=== PATIENT | male | born 1980 | race Caucasian/White ===

== ENCOUNTER 2019-01-25 09:29 | Emergency (ER) | payer MEDICAID ==
[~2019-01-25] VITALS: Ht 165.1 cm; Wt 85.9 kg
[2019-01-25 09:50] VITALS: Ht 165.1 cm; Wt 85.9 kg
[2019-01-25 10:59] LABS: UA SPECIFIC GRAVITY >=1.030 (1.005-1.035); microscopic required? YES; urine erythrocyte 2+ (NEGATIVE)
[2019-01-25 11:47] VITALS: BP 127/84
== END 2019-01-25 11:47 | disposition home or self-care (01) ==
LOC: ED 09:29
PROVIDERS: Emergency Medicine
DX: R31.29 Other microscopic hematuria (principal); R30.9 Painful micturition, unspecified; I10 Essential (primary) hypertension
CPT/HCPCS: 87491; 87591

== ENCOUNTER 2019-04-05 14:22 | Emergency (ER) | payer MEDICAID ==
[~2019-04-05] VITALS: Ht 152.4 cm; Wt 79.8 kg
[2019-04-05 14:37] VITALS: Ht 152.4 cm; Wt 79.8 kg
[2019-04-05 17:18] VITALS: BP 121/89
== END 2019-04-05 17:18 | disposition home or self-care (01) ==
LOC: ED 14:22
DX: K52.9 Noninfective gastroenteritis and colitis, unspecified (principal); I10 Essential (primary) hypertension
CPT/HCPCS: Q0162

== ENCOUNTER 2019-04-07 13:01 | Emergency (ER) | payer MEDICAID ==
[~2019-04-07] VITALS: Ht 165.1 cm; Wt 80.3 kg
[2019-04-07 13:12] VITALS: Ht 165.1 cm; Wt 80.3 kg
[2019-04-07 15:03] LABS: BASOPHIL % 0.4 % (0-2); PLATELET COUNT 261 x10^3mcL (130-400); RED CELL DISTRIBUTION WIDTH 12.8 % (11.5-14.5)
[2019-04-07 15:14] LABS: CALCIUM 8.9 mg/dL (8.5-10.1); CARBON DIOXIDE 26.2 mmol/L (21-32); CHLORIDE SERUM 104 mmol/L (98-107); CREATININE SERUM 1.1 mg/dL (0.7-1.3); GFR1 > 60 mL/min; GLUCOSE SERUM 99 mg/dL (74-106); POTASSIUM SERUM 3.8 mmol/L (3.5-5.1); SODIUM SERUM 140 mmol/L (136-145)
[2019-04-07 15:19] LABS: ALBUMIN 3.8 g/dL (3.4-5.0); ALKALINE PHOSPHATASE 129 U/L (46-116); ALT/SGPT 85 U/L (16-63); AST/SGOT 43 U/L (15-37); BILIRUBIN TOTAL 0.5 mg/dL (0.20-1.00); LIPASE 309 IU/L (73-393); TOTAL PROTEIN, SERUM 7.7 g/dL (6.4-8.2)
[2019-04-07 17:05] VITALS: BP 117/87
== END 2019-04-07 17:05 | disposition home or self-care (01) ==
LOC: ED 13:01
PROVIDERS: Emergency Medicine
DX: A08.4 Viral intestinal infection, unspecified (principal); I10 Essential (primary) hypertension
CPT/HCPCS: J2405; J7030

== ENCOUNTER 2019-07-17 10:22 | Emergency (ER) | payer MEDICAID ==
[~2019-07-17] VITALS: Ht 160 cm; Wt 79.8 kg
[2019-07-17 10:25] VITALS: Ht 160 cm; Wt 79.8 kg
[2019-07-17 12:31] VITALS: BP 140/86
== END 2019-07-17 12:31 | disposition home or self-care (01) ==
LOC: ED 10:22
DX: S89.92XA Unspecified injury of left lower leg, initial encounter (principal); I10 Essential (primary) hypertension; W22.8XXA Striking against or struck by other objects, initial encounter; Y93.89 Activity, other specified; Y92.89 Other specified places as the place of occurrence of the external cause; Y99.8 Other external cause status
CPT/HCPCS: J1885